=== PATIENT | male | born 1960 | race Caucasian/White ===

== ENCOUNTER 2017-11-24 10:56 | Emergency (ER) | payer BC ==
[2017-11-24] MEDS ORDERED: Ibuprofen TAB* 600 MG PO ONE (11:33)
--- NOTE | 2017-11-24 12:02 | UC ---
FLU HPI - HPI Summary HPI Summary: 5 DAYS OF SUBJECTIVE FEVER, COUGH, SOB, CHILLS, BODY ACHES AND [place]. NAUSEA AND EMESIS X 1 TODAY. HAD SOME SHARP EPIGASTRIC PAIN TODAY ON THE DRIVE TO BUT IS NOW RESOLVED. UTD FLU SHOT. - History of Current Complaint Chief Complaint: UCGeneralIllness Stated Complaint: HEADACHE,FEVER,COUGH Time Seen by Provider: 11/24/17 11:25 Hx Obtained From: Patient Onset/Duration: Gradual Onset, Lasting Days, Still Present Severity Currently: Moderate Severity Initially: Moderate Pain Intensity: 8 Pain Scale Used: 0-10 Numeric Associated Signs & Symptoms: Positive: Fever, Myalgia, Cough, Nasal Congestion, Headache, Vomiting - Allergy/Home Medications Allergies/Adverse Reactions: Allergies Allergy/AdvReac Type Severity Reaction Status Date / Time No Known Allergies Allergy Verified 11/24/17 11:18 Home Medications: Home Medications D-Methorphan/PE/Acetaminophen [Vicks Dayquil Liquid] 30 ml PO Q4HR PRN 11/24/17 [History Confirmed 11/24/17] Dextromethorphn/Acetaminoph/Cp [Vicks Nyquil Cold & Flu Liquid] 30 ml PO Q4HR PRN 11/24/17 [History Confirmed 11/24/17] Hydrochlorothiazide TAB* [Hydrodiuril TAB*] 1 tab PO DAILY 11/24/17 [History Confirmed 11/24/17] amLODIPine TAB* [Norvasc 5 mg TAB*] 1 tab PO DAILY 11/24/17 [History Confirmed 11/24/17] PMH/Surg Hx/FS Hx/Imm Hx Cardiovascular History: Hypertension - Surgical History Surgical History: None - Family History Known Family History: Positive: Hypertension - Social History Alcohol Use: None Substance Use Type: None Smoking Status (MU): Never Smoked Tobacco Review of Systems Constitutional: Fever, Chills, Fatigue ENT: Nasal Discharge Respiratory: Shortness Of Breath, Cough Cardiovascular: Negative Gastrointestinal: Abdominal Pain, Vomiting, Nausea Musculoskeletal: Myalgia Neurological: Headache All Other Systems Reviewed And Are Negative: Yes Physical Exam Triage Information Reviewed: Yes Appearance: No Pain Distress, Well-Nourished, Ill-Appearing - MOD Vital Signs: Initial Vital Signs Temp 102.3 F 11/24/17 11:20 Pulse 93 11/24/17 11:20 Resp 18 11/24/17 11:20 BP 126/86 11/24/17 11:20 Pulse Ox 97 11/24/17 11:20 Eyes: Positive: Conjunctiva Clear ENT: Positive: Hearing grossly normal, Pharynx normal, TMs normal Neck: Positive: Supple, Nontender, No Lymphadenopathy Respiratory: Positive: Chest non-tender, Lungs clear, No respiratory distress, No accessory muscle use, Decreased breath sounds - RLL. Negative: Crackles, Wheezing Cardiovascular: Positive: Tachycardia Abdomen Description: Positive: Nontender, Soft Musculoskeletal: Positive: No Edema Neurological: Positive: Alert Psychological: Positive: Normal Response To Family, Age Appropriate Behavior Skin: Negative: rashes Diagnostics - Laboratory Diagnostic Studies Completed/Ordered: INFLUENZA B POSITIVE - Radiology CXR Xray Interpretation: Positive (See Comments) - The constellation of findings is most consistent with bronchopneumonia with the most confluent alveolar consolidation at the anterior segment of the RIGHT upper lobe. Negative for associated pleural effusion. Radiology Interpretation Completed By: Radiologist Flu Course/Dx - Differential Dx/Diagnosis Provider Diagnoses: 1. INFLUENZA B. 2. BRONCHOPNEUMONIA - RIGHT UPPER LOBE Discharge - Discharge Plan Condition: Stable Disposition: HOME Prescriptions: Azithromycin 500 mg PO DAILY #5 tab Oseltamivir CAP* [Tamiflu CAP*] 75 mg PO BID #10 cap Patient Education Materials: Influenza (ED), Community Acquired Pneumonia (ED) , Pneumonia (ED) Referrals: Hi Tucker MD [Primary Care Provider] - 2 Weeks Additional Instructions: SWAB POSITIVE FOR INFLUENZA B. TAMIFLU TWICE DAILY FOR 5 DAYS. OTC MEDS NEEDED FOR FEVER, BODY ACHES. STAY WELL HYDRATED AND RESTED. SEEK FOLLOW-UP IF YOU ARE NOT IMPROVING EXPECTED. CLOSE HOUSEHOLD CONTACTS SHOULD CONSIDER PROPHYLACTIC TREATMENT. CHEST XRAY SHOWS BRONCHOPNEUMONIA. YOU RECEIVED 1GRAM OF ROCEPHIN INTRAMUSCULARLY TODAY. TAKE AZITH FOR 5 DAYS. FOLLOW-UP WITH YOUR PCP IN 1-2 WEEKS. RECOMMEND REPEAT CHEST XRAY IN 4-6 WEEKS AFTER RECOVERY TO DOCUMENT RESOLUTION. GO TO ER WITHOUT FAIL IF YOU DEVELOP WORSENING SHORTNESS OF BREATH, CHEST PAIN, NAUSEA, SWEATS, DIZZINESS OR ANY OTHER CONCERNING SYMPTOMS.
--- NOTE | 2017-11-24 12:38 | RAD ---
INDICATION: Shortness of breath, decreased breath sounds at the RIGHT lower lobe. COMPARISON: August 18, 2011 chest radiograph and June 29, 2011 CT TECHNIQUE: Dual energy PA and routine lateral views of the chest were obtained. REPORT: Airspace consolidation at the level of the anterior segment of the RIGHT upper lobe with some defined linear opacities. Less prominent patchy opacities at the bilateral lung bases. Negative for pleural effusions or pneumothorax. The heart, pulmonary vasculature, and mediastinal contours are unremarkable. IMPRESSION: The constellation of findings is most consistent with bronchopneumonia with the most confluent alveolar consolidation at the anterior segment of the RIGHT upper lobe. Negative for associated pleural effusion.
[2017-11-24] MEDS ORDERED: cefTRIAXone VIAL(*) 1,000 MG VIAL IM ONE (12:57)
[2017-11-24] MEDS ORDERED: Lidocaine 1% MPF* 2 ML VIAL ONE (13:01)
[2017-11-24] MEDS ORDERED: Lidocaine 1% MPF* 2 ML VIAL INJ ONE (13:07)
[2017-11-24 13:25] VITALS: BP 0/0
== END 2017-11-24 13:35 | disposition home or self-care (01) ==
LOC: UCEAST 10:56
DX: J10.08 Influenza due to other identified influenza virus with other specified pneumonia (principal); J18.0 Bronchopneumonia, unspecified organism; I10 Essential (primary) hypertension
CPT/HCPCS: 71046; 87502; 93005; 99212; A9270-GY; G0463; J0696